=== PATIENT | female | born 1995 | race Caucasian/White ===

== ENCOUNTER 2023-09-29 23:50 | Emergency (ER) | payer SELFPAY ==
[~2023-09-29] VITALS: Ht 175.3 cm; Wt 77.1 kg
[2023-09-30] VITALS: BP 119/70; PULSE 57; RESP 16; TEMP 97.6; O2SAT 98
[2023-09-30] MEDS ORDERED: NAPR-337 PO (02:15)
[2023-09-30 02:31] VITALS: BP 119/70; PULSE 57; RESP 16; TEMP 97.6
[2023-09-30] MEDS: IBUPROFEN 600 MG TAB PO ONE (02:31)
[2023-09-30 02:34] VITALS: O2SAT 98
== END 2023-09-30 02:31 | disposition home or self-care (01) ==
LOC: MED 23:50
DX: M25.561 Pain in right knee (principal); M25.532 Pain in left wrist; M54.2 Cervicalgia; R07.9 Chest pain, unspecified; Z79.899 Other long term (current) drug therapy; V49.88XA Car occupant (driver) (passenger) injured in other specified transport accidents, initial encounter; Y93.89 Activity, other specified; Y92.89 Other specified places as the place of occurrence of the external cause; Y99.8 Other external cause status
CPT/HCPCS: 71045; 72050; 73060; 73100; 73560; 99284